=== PATIENT | male | born 1995 | race Caucasian/White ===

== ENCOUNTER 2024-05-10 13:46 | Outpatient (AMB) | payer BC, SELFPAY ==
--- NOTE | 2024-05-10 13:50 | MHC.PC.OV ---
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 Required: No Accompanied by: Self / Same As Patient Allergies No Known Allergies Allergy (Verified 05/10/24 13:53) Medication List - Last Reconciled 05/10/24 by Curtis Sigala MD No Known Home Meds Tobacco use date assessed: 05/10/24 Dental Screening Dental Screen Date: 05/10/24 Did you have a dental visit in the last 12 months?: No Did you have a dental problem in the last 6 months where you did not have access to dental care?: No Was dental information given to patient?: Yes HPI establish care HPI Details occ bloating with dairy, The patient is a 28-year-old male presenting with occasional ocular discomfort and gastrointestinal concerns. The ocular discomfort is associated with prolonged screen exposure due to his new job and is described as tiredness and potential dryness of the eyes. There is no history of vision correction. Gastrointestinal symptoms are suggestive of lactose intolerance, with bloating, gas, and mild diarrhea. The patient has attempted dietary adjustments to address these symptoms. He has a history of sciatica-like discomfort in the left gluteal region, which has resolved in the past month. This discomfort did not radiate down the leg and was episodic in nature. There is a notable family history of myocardial infarction and stroke. - Received influenza vaccination in December 2021 from workplace - COVID-19 vaccination completed, last received between [id number] - Tetanus vaccination last recorded around 2019 - Lifestyle counseling on intake of sufficient water and dietary fiber - Employment: Works at [employer], involved with [employer] - Substance Use: No current use of tobacco or recreational drugs, infrequent alcohol consumption (up to 6 drinks on special occasions) - Exercise and Activity: Advised to maintain an active lifestyle - Dietary Habits: Attempts to avoid milk to manage lactose intolerance - Gastrointestinal: Reports occasional gas and mild diarrhea associated with lactose intake - Ophthalmologic: Reports ocular discomfort and dryness after extensive screen use [facility] Surgical History (Updated 05/10/24 @ 13:55 by RUDY Bowser) History of surgery Family History (Updated 05/10/24 @ 14:09 by Curtis Sigala MD) Father No problems noted. Mother No problems noted. Maternal Grandfather Myocardial infarction Social History (Updated 05/10/24 @ 14:13 by Curtis Sigala MD) Housing: Apartment Alcohol intake: current Alcohol intake frequency: holidays/special occasions only Alcohol type: beer and wine Comment: 2x a month 2 drinks Patient Tobacco Use Status: Former Tobacco user Tobacco use type: Cigarette Years Smoked: 1 pack for life, e-Cigarette/Vaping Use: Never Used Second Hand Smoke Exposure: No service: No Current occupational status: employed Current occupational exposures/hazards: No Cognitive needs: No Hearing needs: No Vision needs: No Questionnaire PHQ-9 Over the last 2 weeks, how often have you been bothered by any of the following problems? 1. Little interest or pleasure in doing things: not at all 2. Feeling down, depressed, or hopeless: not at all 3. Trouble falling or staying asleep, or sleeping too much: several days 4. Feeling tired or having little energy: not at all 5. Poor appetite or overeating: not at all 6. Feeling bad about yourself - or that you are a failure or have let yourself or your family down: not at all 7. Trouble concentrating on things, such as reading the newspaper or watching television: not at all 8. Moving or speaking so slowly that other people could have noticed. Or the opposite - being so fidgety or restless that you have been moving around a lot more than usual: not at all 9. Thoughts that you would be better off or of hurting yourself in some way: not at all Total score: 1 Source: Developed by Drs. Satish Angel, Lorraine David, Huan Suarez and colleagues, with an educational rodrigo from [employer]. Thrive Questionnaire Date Thrive assessed: 05/10/24 I am a: Patient What is your living situation today?: I have a steady place to live Within the past 12 months, did the food you bought not last and you didn't have the money to get more?: Never true Within the past 12 months, did you worry whether your food would run out before you got money to buy more?: Never true Do you have trouble paying for medicines?: No Do you have trouble getting transportation to medical appointments?: No Do you have trouble paying your heating and electricity bill?: No Do you have trouble taking care of your child, family member or friend?: No Do you have trouble with day-to-day activities such as bathing, preparing meals, shopping, managing finances, etc.?: No Are you currently unemployed and looking for a job?: No Are you interested in more education?: No Please select the resources that you would like help with: None Currently or been in a relationship where the following occur: No concerns reported THRIVE Score: 0 AUDIT C Alcohol Use Questionnaire (AUDIT-C) 1. How often do you have a drink containing alcohol?: Monthly or less 2. How many drinks containing alcohol do you have on a typical day when you are drinking?: 1 or 2 3. How often do you have six or more drinks on one occasion?: Less than monthly Total Score: 2 GIANFRANCO-7 AMB Questionnaire GIANFRANCO-7 Date GIANFRANCO - 7 assessed: 05/10/24 Feeling nervous, anxious, or on edge: 1 = Several days Not being able to stop or control worryin = Not at all Worrying too much about different things: 0 = Not at all Trouble relaxin = Not at all Being so restless that it is hard to sit still: 0 = Not at all Becoming easily annoyed or irritable: 0 = Not at all Feeling afraid as if something awful might happen: 0 = Not at all Total GIANFRANCO-7 score (0-4 normal; 5-9 mild; 10-14 moderate; 15-21 severe): 1 Source: Developed by Drs. Satish Angel, Lorraine David, Huan Suarez and colleagues, with an educational rodrigo from [employer]. Physical exam (Primary Care) Vital Signs: Last Vital Signs Pulse 97 05/10/24 13:52 BP 124/66 05/10/24 13:52 Pulse Ox 98 05/10/24 13:52 Oxygen Delivery Method Room Air 05/10/24 13:52 BMI result Body Mass Index 27.2 Tobacco/Smoking Status: Tobacco use Status Tobacco use date assessed 05/10/24 05/10/24 14:01 Patient Tobacco Use Status Former Tobacco user 05/10/24 14:13 Tobacco use type Cigarette 05/10/24 14:13 e-Cigarette/Vaping Use Never Used 05/10/24 14:13 PHQ-9: PHQ-9 Score PHQ-9: Total score 1 05/10/24 14:16 Thrive Assessment: Date of Thrive Assessment Date Thrive assessed 05/10/24 05/10/24 14:01 Currently or been in a relationship where the following occur: No concerns reported Office Procedures Flu Questionnaire Does the patient have a severe egg allergy?: No Immunizations Fluarix Triv [id number] (PF) 45 mcg (15 mcg x 3)/0.5 mL IM syringe Performing Provider: Curtis Sigala MD Performing Location: [facility] [place] [facility] Documented (not given) by: RUDY Bowser on 05/10/24 14:02 Reason Not Given: Received Previously Coding Level of Care Code New Pt Level 4 (37105) Diagnoses Overweight (BMI 25.0-29.9) E66.3 Assessment & Plan Assessment & Plan (1) Overweight (BMI 25.0-29.9): Code(s): E66.3 - Overweight Category: Medical Plan: diet and exercise Plan - Order and conduct comprehensive blood work including fasting blood glucose, complete blood count, lipid profile, kidney and liver function tests, thyroid panel, and vitamin levels - Monitor and manage lactose intolerance through dietary modification - Advise on screen time management to alleviate ocular discomfort - Provide counseling on maintaining a healthy, active lifestyle and balanced diet - Plan for a follow-up visit for a thorough physical examination I discussed with the patient the likely diagnosis and management strategies for his symptoms. We reviewed the importance of dietary adjustments in managing lactose intolerance and ways to reduce ocular discomfort associated with screen use, such as taking regular breaks and ensuring adequate fluid intake. The patient was informed about the planned blood tests and the need for fasting prior to them. We also discussed the potential risks and benefits of vaccines and the importance of influenza, COVID-19, and tetanus vaccines. The patient was advised to maintain an active lifestyle and was informed about the role of fiber and hydration in gastrointestinal health. Follow-up and further evaluation were recommended as part of a complete physical examination. - Follow a lactose-free diet to manage symptoms - Use the 20-20-20 rule for screen use: every 20 minutes, look at something 20 feet away for 20 seconds - Maintain an active lifestyle with regular exercise - Ensure adequate hydration with 6-8 glasses of water daily - Schedule and complete fasting blood tests as discussed - Stay up to date with vaccinations and follow preventive health measures. Orders: Orders Complete Blood Count Auto Diff Today E66.3 - Overweight Comprehensive Met. Panel Today E66.3 - Overweight Thyroid Stimulating Hormone Today E66.3 - Overweight Influenza [id number] Immunization Today Z23 - Encounter for immunization Free T4 (Free Thyroxine) Today E66.3 - Overweight Lipid Panel Today E66.3 - Overweight, E78.00 - Pure hypercholesterolemia, unspecified Vitamin B12 and Folate Today E66.3 - Overweight
[2024-05-10 13:52] VITALS: BP 124/66; PULSE 97; O2SAT 98; BMI 27.2
== END 2024-05-10 14:27 | disposition home or self-care (01) ==
PROVIDERS: Visit Provider Internal Medicine
DX: E66.3 Overweight (principal); Z23 Encounter for immunization

== ENCOUNTER → 2024-05-10 13:46 | Outpatient (BNVA) | payer BC, SELFPAY | PROVIDERS: Visit Provider Internal Medicine | DX: E66.3 Overweight (principal); Z68.27 Body mass index [BMI] 27.0-27.9, adult | CPT/HCPCS: 90471; 96127 ==

== ENCOUNTER 2024-08-16 15:02 | Outpatient (REF) | payer BC, SELFPAY ==
[2024-08-16 15:36] LABS: MANUAL DIFF FLAG NO
[2024-08-16 15:46] LABS: Basophils Percent Auto 0.3 % (0-2); Eosinophils Absolute Auto 0.2 X10*3/uL (0.0-0.4); Hematocrit 45.6 % (42.0-52.0); Hemoglobin 15.9 g/dl (14.0-18.0); Imm Gran Abs Auto 0.02 X10*3/uL (0.00-0.03); Imm Gran Pct Auto 0.3 % (0.0-0.4); Lymphocytes Absolute Auto 2.2 X10*3/uL (1.2-4.9); Lymphocytes Percent Auto 36.6 % (20-40); Mean Corpuscular HGB Conc 34.9 g/dl (31.0-36.0); Mean Corpuscular Hemoglobin 30.5 pg (27.0-33.0); Mean Corpuscular Volume 87.5 fL (80.0-98.0); Mean Platelet Volume 9.2 fL (9.4-12.4); Monocytes Absolute Auto 0.5 X10*3/uL (0.1-1.2); Monocytes Percent Auto 8.7 % (2-11); Neutrophils Percent Auto 50.1 % (45-73); Platelet Count 297 X10*3/uL (160-400); Red Blood Count 5.21 X10*6/uL (4.60-5.80); Red Cell Distribution Width 11.7 % (11.0-16.0)
[2024-08-16 16:38] LABS: Alanine Aminotransferase 26 U/L (0-40); Albumin Level 4.7 g/dL (3.5-5.0); Anion Gap 13 (12-20); Aspartate Amino Transferase 22 U/L (5-37); Bilirubin Total 0.6 mg/dL (0.0-1.0); Blood Urea Nitrogen 12 mg/dL (9-16); Calcium 9.5 mg/dL (8.4-10.2); Carbon Dioxide 25 mmol/L (22-29); Chloride 105 mmol/L (96-108); Cholesterol 149 mg/dL (<200); Estimated Glomerular Filt Rate > 60; Glucose Random 88 mg/dL (60-115); HDL Cholesterol 41 mg/dL (>40); LDL Cholesterol Calculated 87 mg/dL (<100); Sodium 139 mmol/L (135-145); Triglycerides 108 mg/dL (<150)
[2024-08-16 17:11] LABS: Alkaline Phosphatase 68 U/L (39-117); Thyroid Stimulating Hormone 1.42 uIU/mL (0.32-4.0)
[2024-08-16 17:12] LABS: Folate 13.1 ng/mL (> or = 4.0); Vitamin B12 307 pg/mL (200-900)
== END 2024-08-16 15:03 | disposition home or self-care (01) ==
LOC: HO.LAB 15:02
PROVIDERS: PCP Internal Medicine; Visit Provider Internal Medicine
DX: E66.3 Overweight (principal); E78.00 Pure hypercholesterolemia, unspecified
CPT/HCPCS: 36415; 80053; 80061; 82607; 82746; 84439; 84443; 85025

== ENCOUNTER 2024-08-19 09:07 | Outpatient (AMB) | payer BC, SELFPAY ==
[2024-08-19 09:13] VITALS: BP 104/62; PULSE 77; O2SAT 99; BMI 26.5
--- NOTE | 2024-08-19 09:13 | A.OFFPC_ITS ---
Vital Signs 08/19/24 09:13 Height 5 ft 11 in Weight 190 lb BMI 26.5 BP 104/62 Blood Pressure Location Lt brachial Position Sitting Pulse 77 Pulse Source Pulse Oximeter Pulse Oximetry (%) 99 Oxygen Delivery Method Room Air Intake Visit Reasons: PE Allergies No Known Allergies Allergy (Verified 08/19/24 09:14) Medication List - Last Reconciled 08/19/24 by Curtis Sigala MD No Known Home Meds Tobacco use date assessed: 05/10/24 Dental Screening Dental Screen Date: 08/19/24 Did you have a dental visit in the last 12 months?: No Did you have a dental problem in the last 6 months where you did not have access to dental care?: No Was dental information given to patient?: No HPI PE HPI Details dTap September 2020 HPV completed patient's last blood work in the records were done in March 2022 with normal blood count normal white count normal platelet count sugars 76 normal renal function electrolytes are normal liver function is normal patient is positive for hepatitis-B surface antibody PFSH Surgical History (Updated 05/10/24 @ 13:55 by RUDY Bowser) History of surgery Family History (Updated 08/19/24 @ 09:20 by Sheela Garzon CMA) Father No problems noted. Mother No problems noted. Maternal Grandfather Myocardial infarction Brother No problems noted. Sister No problems noted. Social History (Updated 08/19/24 @ 09:34 by Curtis Sigala MD) Housing: Apartment Alcohol intake: current Alcohol intake frequency: holidays/special occasions only Alcohol type: beer and wine Comment: 2x a month 2 drinks-1-2 x a month occ 6 drinks Patient Tobacco Use Status: Former Tobacco user Tobacco use type: Cigarette Years Smoked: 1 pack for life, nicotine pouch e-Cigarette/Vaping Use: Never Used Second Hand Smoke Exposure: No service: No Current occupational status: employed Current occupational exposures/hazards: No Cognitive needs: No Hearing needs: No Vision needs: No Questionnaire PHQ-9 Over the last 2 weeks, how often have you been bothered by any of the following problems? 1. Little interest or pleasure in doing things: not at all 2. Feeling down, depressed, or hopeless: not at all 3. Trouble falling or staying asleep, or sleeping too much: several days 4. Feeling tired or having little energy: not at all 5. Poor appetite or overeating: not at all 6. Feeling bad about yourself - or that you are a failure or have let yourself or your family down: not at all 7. Trouble concentrating on things, such as reading the newspaper or watching television: not at all 8. Moving or speaking so slowly that other people could have noticed. Or the opposite - being so fidgety or restless that you have been moving around a lot more than usual: not at all 9. Thoughts that you would be better off or of hurting yourself in some wa y: not at all Total score: 1 Depression Screening Interpretation: Positive Depression Screening Done: Yes 63112 - PHQ-9 Billing: Yes Source: Developed by Drs. Satish Angel, Lorraine David, Huan Suarez and colleagues, with an educational rodrigo from [employer]. Thrive Questionnaire Date Thrive assessed: 05/10/24 I am a: Patient What is your living situation today?: I have a steady place to live Within the past 12 months, did the food you bought not last and you didn't have the money to get more?: Never true Within the past 12 months, did you worry whether your food would run out before you got money to buy more?: Never true Do you have trouble paying for medicines?: No Do you have trouble getting transportation to medical appointments?: No Do you have trouble paying your heating and electricity bill?: No Do you have trouble taking care of your child, family member or friend?: No Do you have trouble with day-to-day activities such as bathing, preparing meals, shopping, managing finances, etc.?: No Are you currently unemployed and looking for a job?: No Are you interested in more education?: No Please select the resources that you would like help with: None Currently or been in a relationship where the following occur: No concerns reported THRIVE Score: 0 AUDIT C Alcohol Use Questionnaire (AUDIT-C) 1. How often do you have a drink containing alcohol?: Monthly or less 2. How many drinks containing alcohol do you have on a typical day when you are drinking?: 1 or 2 3. How often do you have six or more drinks on one occasion?: Less than monthly Total Score: 2 GIANFRANCO-7 AMB Questionnaire GIANFRANCO-7 Date GIANFRANCO - 7 assessed: 08/19/24 Feeling nervous, anxious, or on edge: 1 = Several days Not being able to stop or control worryin = Not at all Worrying too much about different things: 0 = Not at all Trouble relaxin = Not at all Being so restless that it is hard to sit still: 0 = Not at all Becoming easily annoyed or irritable: 0 = Not at all Feeling afraid as if something awful might happen: 0 = Not at all Total GIANFRANCO-7 score (0-4 normal; 5-9 mild; 10-14 moderate; 15-21 severe): 1 Source: Developed by Drs. Satish Angel, Lorraine David, Huan Suarez and colleagues, with an educational rodrigo from [employer]. GIANFRANCO-7 Assessment Billing GIANFRANCO-7 Assessment Tool: GIANFRANCO-7 Assessment 61292 Review of Systems Const Denies poor appetite and Denies weakness Eyes Denies no additional complaints ENT Reports Normal hearing present, Denies dizziness, Denies nasal congestion, Denies tinnitus and Denies sore throat Card Denies chest pain, Denies syncope, Denies rapid heart rate and Denies dyspnea Resp Denies cough and Denies dyspnea GI Denies change in stool character, Reports constipation, Denies diarrhea, Denies nausea and Denies vomiting Denies dysuria and Denies urinary frequency Neuro Reports Normal hearing present, Denies confusion, Denies dizziness, Denies syncope and Denies weakness Psych Denies confusion Physical exam (Primary Care) Vital Signs: Last Vital Signs Pulse 77 08/19/24 09:13 BP 104/62 08/19/24 09:13 Pulse Ox 99 08/19/24 09:13 Oxygen Delivery Method Room Air 08/19/24 09:13 BMI result Body Mass Index 26.5 Tobacco/Smoking Status: Tobacco use Status Tobacco use date assessed 05/10/24 08/19/24 09:14 Patient Tobacco Use Status Former Tobacco user 08/19/24 09:14 Tobacco use type Cigarette 08/19/24 09:14 e-Cigarette/Vaping Use Never Used 08/19/24 09:14 PHQ-9: PHQ-9 Score PHQ-9: Total score 1 08/19/24 09:14 Depression Screening Interpretation: Positive Thrive Assessment: Date of Thrive Assessment Date Thrive assessed 05/10/24 08/19/24 09:14 Currently or been in a relationship where the following occur: No concerns reported Const General: alert and awake; No confusion Orientation/consciousness: No confusion HENOR Head: Yes normocephalic Ears: external ears normal and TM's normal bilaterally Face and sinus: Yes normal facial exam Mouth: moist mucous membranes Throat: Yes tonsils normal Eyes Conjunctivae: conjunctivae normal Pupils: Equal, round and reactive pupils present and Pupil accommodation reflex normal Direct Ophthalmoscopy: normal light reflex Neck Neck: No lymphadenopathy Thyroid: Thyroid normal Chest Chest palpation & inspection: normal inspection of the chest Resp Effort & Inspection: normal respiratory effort and no audible wheezes Auscultation: clear to auscultation bilaterally, no crackles, no wheezes and lung sounds not diminished Cardio Rate: regular rate Rhythm: regular rhythm Peripheral pulses: radial pulses present and dorsalis pedis present GI Palpation (GI): no masses Auscultation: normal bowel sounds and normoactive bowel sounds Rectal Exam - Male: Yes deferred Skin General skin exam: no rashes or lesions noted Rashes: no rashes Neuro General: deep tendon reflexes 2+ bilaterally and No confusion Cranial nerves: Yes Equal, round and reactive pupils present, Yes Midline tongue present, Yes Normal hearing present and Yes Ability to bilaterally elevate shoulders present Cognition (Neuro): normal cognition Gait exam (Neuro): Normal gait present Motor exam (neuro): 5/5 motor strength present throughout Deep tendon reflexes (DTR's): Right brachioradialis reflex intensity grade: 2+, Left brachioradialis reflex intensity grade: 2+, Right patellar reflex intensity grade: 2+ and Left patellar reflex intensity grade: 2+ Extrem General: No edema Coding Level of Care Code Est Pt Prev Care 18-39y(31617) Diagnoses Annual physical exam Z00.00 Overweight (BMI 25.0-29.9) E66.3 ADHD F90.9 Additional Codes GIANFRANCO-7 Assessment Billing - GIANFRANCO-7 Assessment Tool: GIANFRANCO-7 Assessment 21854 ([id number]) PHQ-9 - 63313 - PHQ-9 Billing: Yes ([id number]) Assessment & Plan Assessment & Plan (1) Annual physical exam: Code(s): Z00.00 - Encounter for general adult medical examination without abnormal findings Category: Medical (2) Overweight (BMI 25.0-29.9): Code(s): E66.3 - Overweight Category: Medical (3) ADHD: Code(s): F90.9 - Attention-deficit hyperactivity disorder, unspecified type Category: Medical Plan History of Present Illness The patient is a 29-year-old male presenting for a routine physical examination. He was last seen in May 2024, and since then, his records, including laboratory work conducted in March 2022, reveal normal findings across blood count, platelet count, renal function, electrolytes, and liver function, with a blood sugar level of 76. He is positive for hepatitis B surface antibody. The visit also focuses on the management of medication refills and associated insurance considerations. Health Maintenance - DTAP vaccination in September 2020 - HPV series completed as per record - Discussion on maintaining healthy lifestyle including diet and physical activity - Avoidance of nicotine emphasized - Follow-up scheduled for the next annual physical Social History - Regular physical activity is encouraged - Avoidance of nicotine emphasized - Advised on the importance of a healthy diet Review of Systems - Denies any current symptoms affecting systems Physical Exam General: Cooperative, healthy appearing, comfortable, no acute distress and well developed Orientation: Patient oriented x3 Limitations: No limitations Head: Normal to inspection Ears: Hearing grossly normal bilaterally Nose: Normal external nose present Face and sinus: Normal facial exam Eyes: Appearance normal, both eyes and all related structures Neck: Normal visual inspection and Yes full ROM Respiratory: Normal respiratory effort and able to speak in complete sentences. Clear to auscultation bilaterally Cardiovascular: Regular rate and rhythm. Normal S1 and S2 GI: Normal to inspection. Soft to palpation and nontender Skin: No rashes or lesions noted Neuro: Patient oriented x3 Extremities: Normal to inspection Results - Labs: Normal blood count, normal electrolytes, normal renal function, normal liver function, LDL of 87, and normal B12, folic acid, thyroid levels from previous March 2022 blood work - Positive for hepatitis B surface antibody Plan Current laboratory and screening results confirm normal health status except for a positive hepatitis B surface antibody, indicating immunity. The patient is doing well within their annual exam schedule, ensuring that assessment could be undertaken for emerging problems related to general health, vaccinations, and liver function, all of which have returned normal results in labs. Medication management and insurance were discussed combining guidelines and general best practices. The patient agreed to return for a follow-up in a year. Recommendations were made to maintain a healthy lifestyle with a fiber-rich diet, exercise, and avoidance of nicotine, which play crucial roles in health maintenance. Patient was informed and verbally consented to the use of an ambient scribe for clinic note documentation during this visit. Discussion Notes I discussed with the patient the normal findings on his lab results, including sustained liver function in the setting of a positive hepatitis B surface antibody, suggesting acquired immunity. We talked through the continuation of a balanced health routine, significance of regular physical exams, and challenges with medication refill procedures involving insurance coverage. Anticipatory guidance involved maintaining a healthy diet with consideration for fiber intake, regular activity levels, and complete avoidance of nicotine products. He consented to these continued health practices and to follow up in one year for the next annual exam once scheduled. Patient Instructions - Schedule follow-up visit for next annual physical - Maintain a healthy diet rich in fiber - Keep physically active and exercise regularly - Avoid nicotine consumption - Remember medication refill process and insurance guidelines - Reach out with any health changes or emergencies Orders: Referrals Psychiatry Outpatient Consultation Service F90.9 - Attention-deficit hyperactivity disorder, unspecified type
== END 2024-08-19 09:50 | disposition home or self-care (01) ==
LOC: HO.HMCH 09:08
PROVIDERS: PCP Internal Medicine; Visit Provider Internal Medicine
DX: Z00.00 Encounter for general adult medical examination without abnormal findings (principal); E66.3 Overweight; F90.9 Attention-deficit hyperactivity disorder, unspecified type

== ENCOUNTER → 2024-08-19 09:07 | Outpatient (BNVA) | payer BC, SELFPAY | PROVIDERS: PCP Internal Medicine; Visit Provider Internal Medicine | DX: Z00.00 Encounter for general adult medical examination without abnormal findings (principal); E66.3 Overweight; F90.9 Attention-deficit hyperactivity disorder, unspecified type | CPT/HCPCS: 96127 ==